=== PATIENT | female | born 1990 | race Caucasian/White ===

== ENCOUNTER 2019-01-25 19:51 | Emergency (ER) | payer MEDICAID ==
[~2019-01-25] VITALS: Ht 175.3 cm; Wt 80.7 kg
[2019-01-25 20:07] VITALS: BP 121/68
== END 2019-01-25 21:47 | disposition home or self-care (01) ==
LOC: MED 19:51
DX: B37.9 Candidiasis, unspecified (principal); Z90.49 Acquired absence of other specified parts of digestive tract; Z98.890 Other specified postprocedural states; Z88.0 Allergy status to penicillin
CPT/HCPCS: 81002; 81025; 99283